=== PATIENT | male | born 1995 | race Two or more races ===

== ENCOUNTER 2024-06-25 17:25 | Inpatient (IN) | payer OTHER ==
[2024-06-25 19:49] VITALS: BMI 21.9
[2024-06-25] MEDS ORDERED: BENZONATATE 200 MG CAPSULE PO PRN (20:22)
[2024-06-25] MEDS ORDERED: NALOXONE (NARCAN) HCL 4 MG/0.1 ML SPRAY NS PRN (20:22)
[2024-06-25] MEDS ORDERED: NICOTINE POLACRILEX 4 MG GUM BUC PRN (20:22)
[2024-06-25] MEDS ORDERED: hydrOXYzine PAMOATE 25 MG CAPSULE (FP) PO PRN (20:22)
[2024-06-25] MEDS ORDERED: LOPERAMIDE HCL 2 MG CAPSULE PO PRN (20:22)
[2024-06-25] MEDS ORDERED: BENZOCAINE/MENTHOL (CHLORASEPTIC ) LOZENGE MM PRN (20:22)
[2024-06-25] MEDS ORDERED: guaiFENesin 600 MG TABLET.ER (FP) PO PRN (20:22)
[2024-06-25] MEDS ORDERED: IBUPROFEN 400 MG TABLET (FP) PO PRN (20:22)
[2024-06-25] MEDS ORDERED: ACETAMINOPHEN 325 MG TABLET (FP) PO PRN (20:22)
[2024-06-25] MEDS ORDERED: TUBERCULIN PPD 5 TU/0.1ML VIAL ID ONE ×2 (21:26→23:10)
[2024-06-25] MEDS: MELATONIN 5 MG TABLETS PO SCH (22:59)
[2024-06-25] MEDS: TUBERCULIN PPD 5 TU/0.1ML SYRINGE (IN PATIENT USE ONLY) ID ONE (22:59)
[2024-06-25] MEDS: THIAMINE 100 MG TABLET PO SCH (22:59)
[2024-06-26] MEDS: methaDONE HCL 40 MG DISPERSABLE TABLET PO SCH (09:33)
[2024-06-26] MEDS: PRENATAL VITAMINS W/ FOLIC ACID TABLET (FP) PO SCH (09:33)
[2024-06-26] MEDS: NICOTINE 21 MG/24 HOURS TOPICAL PATCH TD SCH (09:33)
[2024-06-26] MEDS: risperiDONE 1 MG TABLET PO SCH (11:53)
[2024-06-26] MEDS: MAG HYDROX/AL HYDROX/SIMETH 30 ML UNIT-DOSE CUP PO PRN (11:55)
[2024-06-26 14:43] LABS: PH,URINE 8.5 (5.0-8.0); URINE APPEARANCE CLEAR; URINE BILIRUBIN NEGATIVE (NEGATIVE); URINE COLOR YELLOW; URINE GLUCOSE (UA) NEGATIVE (NEGATIVE); URINE KETONE NEGATIVE (NEGATIVE); URINE LEUK ESTERASE NEGATIVE (NEGATIVE); URINE NITRITE NEGATIVE (NEGATIVE); URINE PROTEIN NEGATIVE (NEGATIVE)
[2024-06-26 14:47] LABS: HEMATOCRIT 40.3 % (35.4-49); HEMOGLOBIN 13.6 GM/dL (11.7-16.9); MCH 30.4 pg (25.7-33.7); MCHC 33.8 g/dl (32.0-35.9); MEAN PLT VOLUME 8.6 fl (7.5-11.1); PLATELET COUNT 294 10^3/uL (134-434); RBC 4.48 M/mm3 (4.00-5.60); RDW 12.7 % (11.9-15.9); WHITE BLOOD COUNT 7.4 K/mm3 (4.0-10.0)
[2024-06-26 15:02] LABS: CHLORIDE 105 mmol/L (98-107); POTASSIUM 4.2 mmol/L (3.5-5.1); SODIUM 137 mmol/L (136-145)
[2024-06-26 15:08] LABS: ALBUMIN 4.3 g/dl (3.4-5.0); ANION GAP 4 mmol/L (4-13); BLOOD UREA NITROGEN 8.9 mg/dL (7-18); CALCIUM 9.4 mg/dL (8.5-10.1); CO2 29 mmol/L (21-32)
[2024-06-26 15:09] LABS: GLUCOSE,RANDOM 83 mg/dL (74-106)
[2024-06-26 15:10] LABS: SGOT/AST 14 U/L (15-37); SGPT/ALT 22 U/L (13-61)
[2024-06-26 15:11] LABS: BILIRUBIN,TOTAL 0.2 mg/dL (0.2-1); TOT PROT 7.4 g/dl (6.4-8.2)
[2024-06-26 15:12] LABS: ALK PHOS 83 U/L (45-117); CREATININE 0.7 mg/dL (0.55-1.3)
[2024-06-26 15:33] LABS: SYPHILIS W/ RPR CONF NON-REACTIVE (NONREACTIVE)
[2024-06-26] MEDS: risperiDONE 2 MG TABLET PO SCH (21:20)
[2024-06-29] MEDS: MAGNESIUM HYDROX 2400MG/30ML ORAL SUSPENSION 30 ML CUP PO PRN (18:42)
[2024-07-02] MEDS: IBUPROFEN 600 MG TABLET (FP) PO PRN (17:57)
[2024-07-03] MEDS ORDERED: BENZOCAINE 20 % GEL TUBE MM PRN (10:43)
[2024-07-03] MEDS: AMOX TR/POT CLAV 500MG/125MG TABLETS (FP) PO SCH (13:21)
[2024-07-07] MEDS: POLYETHYLENE GLYCOL (HEALTHYLAX) 3350 17 GM PACKET PO PRN (12:51)
[2024-07-12] MEDS: DOCUSATE SODIUM 100 MG CAPSULE (FP) PO PRN (17:30)
[2024-07-23 06:50] VITALS: BP 109/82; PULSE 83; RESP 17; TEMP 97.8
[2024-07-23] MEDS: NALOXONE (NYS OPIOID OVERDOSE PROGRAM) 4 MG/0.1 ML SPRAY NS PRN (07:20)
[2024-07-23] MEDS ORDERED: NALOXONE (NYS OPIOID OVERDOSE PROGRAM) 4 MG/0.1 ML SPRAY NS SCH (07:30)
== END 2024-07-23 07:20 | disposition home or self-care (01) | DRG 772 ==
LOC: YASAS 17:25 → Y3E 20:14
PROVIDERS: ADMIT Allergy & Immunology; ATTEND Psychiatry & Neurology Pain Medicine
PROC: HZ42ZZZ Group Counseling for Substance Abuse Treatment, Cognitive-Behavioral (ICD-10-PCS; principal; 2024-06-25)
DX: F11.20 Opioid dependence, uncomplicated (principal); F12.20 Cannabis dependence, uncomplicated; F17.210 Nicotine dependence, cigarettes, uncomplicated; F20.9 Schizophrenia, unspecified; F31.9 Bipolar disorder, unspecified; F99 Mental disorder, not otherwise specified; K59.00 Constipation, unspecified; K02.9 Dental caries, unspecified; K08.89 Other specified disorders of teeth and supporting structures; Z65.3 Problems related to other legal circumstances; Z59.00 Homelessness unspecified
CPT/HCPCS: 36415; 80053; 80305; 80307; 81003; 85027; 86780; 86803; 87522; 87811; 93005; 93010